=== PATIENT | female | born 1965 | race Caucasian/White ===

== ENCOUNTER 2021-10-15 19:36 | Emergency (ER) | payer OTHER ==
[~2021-10-15] VITALS: Ht 160 cm; Wt 63.7 kg
[2021-10-15 20:07] VITALS: BP 127/75
== END 2021-10-16 03:30 | disposition home or self-care (01) ==
LOC: EDBD 19:37 → ER 19:37
DX: Z02.89 Encounter for other administrative examinations (principal); F29 Unspecified psychosis not due to a substance or known physiological condition; F40.00 Agoraphobia, unspecified
CPT/HCPCS: 99282